=== PATIENT | female | born 1990 | race Hispanic/Latino ===

== ENCOUNTER 2025-08-22 08:26 | Outpatient (CLI) | payer SELFPAY ==
--- NOTE | ~2025-08-22 | US_ITS ---
EXAMINATION: US abdomen complete, 08/22/2025 8:31 [facility] HISTORY: Other secondary thrombocytopenia COMPARISON: None Technique: Goodman-scale and color Doppler images were obtained. Findings: LIVER: Lliver contours intact, no lesions. Normal echogenicity. . GALLBLADDER/BILIARY: There is mild thickening of the gallbladder wall with cholelithiasis, there is no pericholecystic fluid. CBD 6 mm. [place] sign negative. PANCREAS: Unremarkable. SPLEEN: Unremarkable, no splenomegaly. KIDNEYS: Right Kidney: Right kidney 10.6 x 3.7 x 6.1 cm, normal. Left Kidney: Left kidney 10.6 x 5.9 x 5 cm, normal. AORTA: Normal caliber aorta. IVC: Unremarkable. FREE FLUID: None. Impression: Cholelithiasis. Mild thickening of the gallbladder wall. If there is concern for acute cholecystitis nuclear medicine HIDA scan suggested Reviewed, dictated and finalized at location P. ROLL OPERATOR Impression: Cholelithiasis. Mild thickening of the gallbladder wall. If there is concern fo r acute cholecystitis nuclear medicine HIDA scan suggested
== END 2025-08-22 08:27 | disposition home or self-care (01) ==
PROVIDERS: PCP Internal Medicine Hematology & Oncology; Visit Provider Internal Medicine Hematology & Oncology
DX: D69.59 Other secondary thrombocytopenia (principal); K80.20 Calculus of gallbladder without cholecystitis without obstruction
CPT/HCPCS: 76700